=== PATIENT | female | born 1935 | race Caucasian/White ===

== ENCOUNTER 2020-08-07 21:51 | Inpatient (IN) | payer MEDICARE, OTHER ==
[~2020-08-07] VITALS: Ht 157.5 cm; Wt 65.8 kg
[2020-08-07] MEDS ORDERED: IV NS 0.9% 1,000 ML BAG IV ONE (22:30)
--- NOTE | 2020-08-07 22:33 | NUR ---
PATIENT TO ER BED [address] [facility] FROM [facility]. PT IS AAOX3. SOMNOLENT. PATIENT IS BREATHING EVENLY AND UNLABORED ON 2L N/C AT 100%. PATIENT IS CONNECTED TO COMMERCIAL PEST CONTROL REPRESENTATIVE. Addendum: 08/08/20 at 0607 by NICOLE PT C/O ALTERED MENTAL STATUS.
[2020-08-07 22:40] LABS: BASOPHILS # (AUTO) 0.1 /CMM (0.0-0.2); BASOPHILS % (AUTO) 0.8 % (0.0-2.0); EOSINOPHILS % (AUTO) 2.7 % (0.0-6.0); HEMATOCRIT 45 % (33-45); HEMOGLOBIN 14.3 g/dL (11.5-14.8); LYMPHOCYTES # (AUTO) 2.8 /CMM (0.8-4.8); LYMPHOCYTES % (AUTO) 19.4 % (20.0-44.0); MEAN CORPUSCULAR HGB CONC 32 g/dl (31.0-36.0); MEAN CORPUSCULAR VOLUME 91 fL (82-100); MONOCYTES # (AUTO) 0.8 /CMM (0.1-1.30); MONOCYTES % (AUTO) 5.7 % (2.0-12.0); NEUTROPHILS # (AUTO) 10.3 /CMM (1.8-8.9); NEUTROPHILS % (AUTO) 71.4 % (43.0-81.0); PLATELET COUNT (AUTO) 248 /CMM (150-450); RED BLOOD CELL COUNT(AUTO) 4.97 MIL/uL (4.0-5.2); WHITE BLOOD COUNT (AUTO) 14.4 K/uL (4.3-11.0)
--- NOTE | 2020-08-07 22:44 | NUR ---
PT TAKEN TO CT. SCAN.
--- NOTE | 2020-08-07 22:44 | NUR ---
URINE COLLECTED AND SENT TO THE LAB.
[2020-08-07 22:55] LABS: ALBUMIN 2.7 g/dL (3.4-5.0); BILIRUBIN,DIRECT 0.2 mg/dL (0.0-0.2); BILIRUBIN,TOTAL 0.4 mg/dL (0.2-1.0); CALCIUM, SERUM 9.1 mg/dL (8.5-10.1); CREATININE 1.1 mg/dL (0.6-1.3); POTASSIUM 5.2 mmol/L (3.5-5.1); TOTAL PROTEIN, SERUM 6.5 g/dL (6.4-8.2)
[2020-08-07] MEDS ORDERED: DEXTROSE 50%-WATER 50 ML DISP.SYRIN IVP ONE (23:00)
[2020-08-07 23:04] LABS: ACETAMINOPHEN 1 ug/ml (10-30); ALCOHOL, BLOOD < 3 mg/dL (0-0)
[2020-08-07] MEDS ORDERED: DEXTROSE 50%-WATER 50 ML DISP.SYRIN ONE (23:07)
[2020-08-07 23:58] LABS: BILIRUBIN,URINE NEGATIVE (NEGATIVE); COLOR,URINE YELLOW (YELLOW); LEUKOCYTE ESTERASE ,URINE NEGATIVE (NEGATIVE); NITRITE, URINE NEGATIVE (NEGATIVE); PH,URINE 6.5 (5.0-8.0); PROTEIN,URINE NEGATIVE (NEGATIVE); UGLUCOSE NEGATIVE (NEGATIVE); UROBILINOGEN,URINE 0.2 EU/dL (0.2)
[2020-08-08] MEDS ORDERED: AZITHROMYCIN 500 MG in IV D5W 250 ML IV ONE ×2
[2020-08-08] MEDS ORDERED: CEFEPIME 1 GM in IV D5W 50 ML IV ONE ×2
[2020-08-08] MEDS ORDERED: methylPREDNISolone SOD SUCC 125 MG/2ML VIAL IV ONE
[2020-08-08] MEDS ORDERED: CEFEPIME 1 GM VIAL ONE (00:06)
[2020-08-08] MEDS ORDERED: methylPREDNISolone SOD SUCC 125 MG/2ML VIAL ONE (00:06)
[2020-08-08] MEDS ORDERED: IV NS 0.9% 1,000 ML BAG IV ONE (00:30)
--- NOTE | 2020-08-08 00:33 | NUR ---
[facility]ED [facility] PER [facility] KWAN REQUEST
[2020-08-08] MEDS ORDERED: AZITHROMYCIN 500 MG VIAL ONE (00:38)
[2020-08-08] MEDS ORDERED: ACETAMINOPHEN 325 MG TABLET PO PRN (05:00)
[2020-08-08] MEDS ORDERED: ONDANSETRON HCL/PF 4 MG/2 ML VIAL IVP PRN (05:00)
--- NOTE | 2020-08-08 05:23 | NUR ---
LAB CALLED REGARDING NEGATIVE COVID RESULT.
--- NOTE | 2020-08-08 05:40 | NUR ---
PATIENT IS GIVEN A BED BATH. PATIENT'S GOWN IS CHANGED. BEDSHEET IS CHANGED. PATIENT IS PROVIDED WITH CLEAN BLANKET. PATIENT'S CALL LIGHT IS WITHIN REACH. PATIENT IS MORE AWAKE, NOT SOMNOLENT. BREATHING EVENLY AND UNLABORED ON 2L NASAL CANNULA AT 100%. CONNECTED TO CARDIAC MONTIOR.
--- NOTE | 2020-08-08 05:57 | NUR ---
TELE 209-2
--- NOTE | 2020-08-08 06:05 | NUR ---
PATIENT IS MORE AWAKE. PATIENT IS AAOX3. PATIENT IS ABLE TO FOLLOW COMMANDS AND ANSWER EVERY QUESTIONS.
--- NOTE | 2020-08-08 06:21 | NUR ---
REPORT GIVEN TO NIECY JAMA FOR BRENNAN.
--- NOTE | 2020-08-08 06:22 | NUR ---
ACCEPTING NURSE WILL CALL BACK WHEN BED IS READY.
[2020-08-08] MEDS ORDERED: ARIP5TAB59 PO (08:04)
[2020-08-08] MEDS ORDERED: LEVO88TA5 PO (08:04)
[2020-08-08] MEDS ORDERED: ATEN25TA PO (08:04)
[2020-08-08] MEDS ORDERED: CLON0.1T PO (08:04)
[2020-08-08] MEDS: PANTOPRAZOLE 40 MG TABLET.DR PO SCH (08:25)
[2020-08-08 08:30] LABS: CALCIUM, SERUM 7.7 mg/dL (8.5-10.1); CREATININE 0.9 mg/dL (0.6-1.3); POTASSIUM 5.4 mmol/L (3.5-5.1)
[2020-08-08 08:46] LABS: ALBUMIN 2.4 g/dL (3.4-5.0); BILIRUBIN,TOTAL 0.3 mg/dL (0.2-1.0); MAGNESIUM 2.4 mg/dL (1.8-2.4); PHOSPHORUS 3.8 mg/dL (2.5-4.9); TOTAL PROTEIN, SERUM 5.9 g/dL (6.4-8.2)
[2020-08-08 08:58] LABS: THYROID STIMULATING HORMONE 39.488 uIU/mL (0.358-3.74)
[2020-08-08] MEDS: DOCUSATE SODIUM 100 MG CAPSULE PO SCH ×2 (09:00→16:13)
--- NOTE | 2020-08-08 09:30 | NUR ---
TELE/RN NOTES RELIEVED PATIENT FROM OR NURSE. PATIENT IS ON 2 L OXYGEN VIA NASAL CANNULA TOLERATING WELL. PATIENT IN NO APPARENT RESPIRATORY DISTRESS NOTED. NO COMPLAINED OF PAIN. INITIAL ASSESSMENT WAS DONE. WILL CONTINUE TO MONITOR.
[2020-08-08 09:50] LABS: EOSINOPHILS % (AUTO) 0.1 % (0.0-6.0); HEMATOCRIT 44 % (33-45); HEMOGLOBIN 13.9 g/dL (11.5-14.8); LYMPHOCYTES % (AUTO) 7.3 % (20.0-44.0); MEAN CORPUSCULAR HGB CONC 32 g/dl (31.0-36.0); MEAN CORPUSCULAR VOLUME 90 fL (82-100); MONOCYTES # (AUTO) 0.2 /CMM (0.1-1.30); MONOCYTES % (AUTO) 1.5 % (2.0-12.0); NEUTROPHILS # (AUTO) 12.5 /CMM (1.8-8.9); NEUTROPHILS % (AUTO) 91.1 % (43.0-81.0); PLATELET COUNT (AUTO) 162 /CMM (150-450); RED BLOOD CELL COUNT(AUTO) 4.91 MIL/uL (4.0-5.2); WHITE BLOOD COUNT (AUTO) 13.7 K/uL (4.3-11.0)
[2020-08-08] MEDS: VANCOMYCIN 1 GM in IV D5W 250 ML IV SCH (10:18)
[2020-08-08] MEDS: IV D5/ 0.9% NACL 1,000 ML IV PRN (10:18)
[2020-08-08] MEDS: PIPERACILLIN /TAZOBACTAM 3.375 G in IV D5W 50 ML IV SCH ×3 (13:18→23:35)
--- NOTE | 2020-08-08 15:00 | NUR ---
TELE/RN NOTES GIVE REPORT TO LATA FOR BRENNAN. PATIENT IN NO APPARENT RESPIRATORY DISTRESS NOTED. NO COMPLAINED OF PAIN. TRANSFER PATIENT PER HOSPITAL PROTOCOL.
--- NOTE | 2020-08-08 15:00 | NUR ---
MINERVA/RN NOTES GIVE REPORT TO LATA AMIN. Addendum: 08/08/20 at 1618 by REUBEN ROA RN ERROR
--- NOTE | 2020-08-08 15:30 | NUR ---
Received patient in bed, A/)x3, on NC at 2L of O2, SPO2 is 94%, tolerating well, no s/sx of resp arrest or SOB noted, Will cont to monitor
[2020-08-08] MEDS: ARIPIPRAZOLE 5 MG TABLET PO SCH (16:13)
--- NOTE | 2020-08-08 18:32 | NUR ---
RN CLOSING NOTES PATIENT IN BED, A/OX3, TOLERATING O2 WELL, SPO2 IS 98%, NO S/SX OF DISTRESS NOTED, NPO STATUS UNTIL SWALLOW EVAL, SAFETY MEASURES IN PLACE, CALL LIGHT IN REACH, HOB ELEVATED, WILL ENDORSE TO PM SHIFT RN FOR BRENNAN
--- NOTE | 2020-08-08 19:30 | NUR ---
RN OPENING NOTES: RECEIVED PT A/OX 2-3 IN BED RESTING COMFORTABLY. PATIENT IN NO S/SX OF ACUTE DISTRESS AT THIS TIME. NO SOB NOTED. PATIENT'S BREATHING IS EVEN AND UNLABORED. PATIENT IS ON 2L OF OXYGEN VIA NC; TOLERATING WELL. PATIENT ON TELE MONITORING READING SINUS RHYTHM HR IS @70's AT THE TIME OF RECEIVED. PT ON NPO AT THIS TIME. G TUBE FLUSHING AND PATENT; SITE CLEAN DRY AND INTACT; NO RESIDUAL NOTED; CLAMPED. NOTED IV SITE ON R HAND #22 AND L HAND #22; PATENT, INTACT AND FLUSHING WELL; NO S/S OF INFECTION OR INFILTRATION. WITH IV FLUID RUNNING ORDERED. SAFETY MEASURES HAVE BEEN PROVIDED AND IMPLEMENTED. PATIENT BED ALARM IS ON. HEAD OF BED ELEVATED. BED IS LOCKED, IN LOWEST POSITION AND SIDE RAILS UP. CALL LIGHT WITHIN REACH OF THE PATIENT. APPLICABLE ISOLATION PRECAUTIONS IN PLACE. WILL CONTINUE TO MONITOR AND REASSESS FOR ANY CHANGES AND WILL CARRY OUT ANY ONGOING AND ACTIVE MD ORDER.
[2020-08-08] MEDS: MORPHINE SULFATE INJ 2 MG/ML DISP.SYRIN IV PRN (19:37)
[2020-08-08 20:00] VITALS: BP 105/52
--- NOTE | 2020-08-08 20:30 | NUR ---
RN NOTES PATIENT COMPLAINS OF PAIN ON HER L HAND. PRN MEDICATION GIVEN ( MORPHINE) ALSO PROVIDED PAIN MGT MEASURES TO REDUCE DISCOMFORT OF PATIENT. MEDICAL BILLER CODER MADE AWARE. PATIENT ALSO ASKING FOR HER PHONE. RN CHECKED CHART TO VERIFY IF PT HAS PHONE DURING ADMISSION. PER BELONGINGS FORM DONE DURING ADMISSION NO BELONGINGS LISTED. CALLED PT'S SISTER (BENNY) AND ADVISE ABOUT PT'S PHONE CONCERN AND ADVISE HER THAT NO PHONE WAS BROUGHT DURING ADMISSION. SHE SAID IT MIGHT BE STILL WITH [facility] WHERE PATIENT CAME FROM. SHE WILL TRY TO CONTACT THEM AND WILL BRING TO [facility] ONCE OBTAINED TO BE GIVEN TO THE PATIENT. ALSO PROVIDED SOME GENERAL UPDATES ABOUT PATIENT. RN FACILITATED CALL FOR PATIENT AND PATIENT RELATIVE ( BENNY). BENNY WAS VERY THANKFUL FOR THE SERVICE BEING RENDERED TO THE PATIENT. RN ACKNOWLEDGED. MEDICAL BILLER CODER MADE AWARE.
--- NOTE | 2020-08-08 21:00 | NUR ---
RN NOTES PATIENT STILL COMPLAINS OF PAIN ON HER L HAND, PATIENT IS A LITTLE RESTLESS AND KEEPS ON SCREAMING. PAIN MGT MEASURE STILL BEING RENDERED. WILL COMMUNICATE WITH ELAINE VELÁSQUEZ ABOUT THIS CONCERN. COMMUNICATED WITH ELAINE VELÁSQUEZ AND ADVISE ISSUE. SECURED ORDER FOR PATIENT. ONCISABELLA VELÁSQUEZ ( DR. SERNA) ORDERED ATIVAN 0.5MG IV Q6H PRN. WILL ADMINISTER PER ORDERED. SUPPORT ANALYST MADE AWARE. WILL CONTINUE TO MONITOR AND ASSESS THROUGHOUT THE SHIFT.
[2020-08-08] MEDS ORDERED: LORAZEPAM INJ 2 MG/ML VIAL IV PRN (22:30)
--- NOTE | 2020-08-08 23:00 | NUR ---
RN NOTES PATIENT REMAINS IN NO ACUTE RESPIRATORY DISTRESS AT THIS TIME, STABLE AT THIS TIME;NO CHANGES TO CONDITION/STATUS. PATIENT STILL HAVE SOME EPISODES OF DISCOMFORT AND PAIN FROM L HAND. RN CONTINUOUSLY PROVIDING NURSING PAIN MGT MEASURES TO RELIEVE DISCOMFORT EXPERIENCE. DISABILITY PROGRAM NAVIGATOR WELL AWARE. WILL CONTINUE TO MONITOR AND REASSESS FOR ANY CHANGES THROUGHOUT THE SHIFT
[2020-08-09] VITALS (8 sets, daily range): BP systolic 84–142; BP diastolic 39–82
--- NOTE | 2020-08-09 04:05 | NUR ---
RN NOTES NOTED PATIENT'S BLOOD PRESSURE IS @ 84/40. PT HAS HISTORY OF HYPOTENSION. PREVIOUS BP PLAYS AROUND LOW 100s AND 90s for SYSTOLIC. DEEP JAMA MADE AWARE. WILL INFORM ELAINE VELÁSQUEZ FOR HEADS UP AND TO SECURE FOR ANY NECESSARY ORDERS NEEDED. WILL CONTINUE TO MONITOR AND ASSESS CLOSELY THE PATIENT THROUGHTOUT THE SHIFT. COMMUNICATED WITH ELAINE VELÁSQUEZ (DR SERNA) AND ADVISED CURRENT CONDITION AND CONCERN REGARDING PATIENT ( LOW BLOOD PRESSURE ( 84/40) @0400. AWAITING RESPONSE FROM ELAINE VELÁSQUEZ. DEEP JAMA MADE AWARE. Addendum: 08/09/20 at 0523 by NIECY GRAVES RN RECEIVED ORDER FROM DR. SERNA (ELAINE) BOLUS OF NS 500ML. DEEP JAMA MADE AWARE. WILL CARRY OUT ORDER. WILL CONTINUE TO MONITOR AND ASSESS CLOSELY THE PATIENT THROUGHOUT THE SHIFT.
[2020-08-09] MEDS ORDERED: IV NS 0.9% 500 ML IV ONE (05:00)
--- NOTE | 2020-08-09 05:05 | NUR ---
RN NOTES RECEIVED CALL FROM LAB ([facility]) INFORMED ABOUT CRITICAL LAB ; BLOOD CULTURE: GRAM + COCCI IN CLUSTERS. COMMUNICATED WITH ELAINE VELÁSQUEZ REGARDING CRITICAL LAB RESULT: BLOOD CULTURE: GRAM + COCCI IN CLUSTERS. DEEP JAMA MADE AWARE. Addendum: 08/09/20 at 0533 by NIECY GRAVES RN PER DR. SERNA, CONTINUE CURRENT ANTIBIOTICS; RN ACKNOWLEDGED. DEEP JAMA MADE AWARE.
[2020-08-09] MEDS: PIPERACILLIN /TAZOBACTAM 3.375 G in IV D5W 50 ML IV SCH ×2 (05:21→12:18)
[2020-08-09] MEDS: IV D5/ 0.9% NACL 1,000 ML IV PRN (06:34)
--- NOTE | 2020-08-09 06:52 | NUR ---
RN CLOSING NOTE: PATIENT REMAINS IN ROOM IN NO SIGNS OF RESPIRATORY DISTRESS. SAFETY MEASURES IMPLEMENTED, BED IN LOWEST POSITION, LOCKED, SIDE RAILS UP, CALL LIGHT WITHIN REACH. ALL NEEDS AND ORDERS ADDRESSED DURING THE SHIFT. IV ACCESS MAINTAINED INTACT, SECURED AND FLUSHING WELL. ALL DUE MEDS GIVEN ORDERED & SCHEDULED ; PATIENT TOLERATED WELL. PATIENT KEPT CLEAN AND COMFORTABLE WITHIN THE SHIFT. ENDORSED TO INCOMING SHIFT RN FOR CONTINUITY OF CARE.
[2020-08-09] MEDS ORDERED: LEVOTHYROXINE SODIUM 88 MCG TABLET PO SCH (07:00)
[2020-08-09 07:26] LABS: ALBUMIN 2.1 g/dL (3.4-5.0); BILIRUBIN,DIRECT 0.3 mg/dL (0.0-0.2); BILIRUBIN,TOTAL 0.4 mg/dL (0.2-1.0); POTASSIUM 4.1 mmol/L (3.5-5.1); TOTAL PROTEIN, SERUM 5.1 g/dL (6.4-8.2)
[2020-08-09] MEDS: PANTOPRAZOLE 40 MG TABLET.DR PO SCH (07:30)
--- NOTE | 2020-08-09 07:30 | NUR ---
RN OPENING NOTES: RECEIVED PT A/OX 2-3 IN BED RESTING COMFORTABLY. PATIENT IN NO S/SX OF ACUTE DISTRESS AT THIS TIME. NO SOB NOTED. PATIENT'S BREATHING IS EVEN AND UNLABORED. PATIENT IS ON 2L OF OXYGEN VIA NC; TOLERATING WELL. PATIENT ON TELE MONITORING READING SINUS RHYTHM HR IS @70's AT THE TIME OF RECEIVED. PT ON NPO AT THIS TIME. G TUBE FLUSHING AND PATENT; SITE CLEAN DRY AND INTACT; NO RESIDUAL NOTED; CLAMPED. NOTED IV SITE ON R HAND #22 AND L HAND #22; PATENT, INTACT AND FLUSHING WELL; NO S/S OF INFECTION OR INFILTRATION. WITH IV FLUID RUNNING ORDERED. SAFETY MEASURES HAVE BEEN PROVIDED AND IMPLEMENTED. PATIENT BED ALARM IS ON. HEAD OF BED ELEVATED. BED IS LOCKED, IN LOWEST POSITION AND SIDE RAILS UP. CALL LIGHT WITHIN REACH OF THE PATIENT. APPLICABLE ISOLATION PRECAUTIONS IN PLACE. WILL CONTINUE TO MONITOR AND PROVIDE TREATMENT
[2020-08-09] MEDS: VANCOMYCIN 1 GM in IV D5W 250 ML IV SCH (08:17)
[2020-08-09] MEDS: DOCUSATE SODIUM 100 MG CAPSULE PO SCH (08:55)
[2020-08-09] MEDS: ARIPIPRAZOLE 5 MG TABLET PO SCH (08:55)
--- NOTE | 2020-08-09 09:17 | NUR ---
INFORMED MD OF HYPOTENSION. NEW ORDER OBTAINED TO INCREASE IV FLUIDS TO 100ML/HR. ORDER IMPLEMENTED. WILL CONTINUE TO MONITOR PATIENT
--- NOTE | 2020-08-09 10:17 | NUR ---
REASSESSED BLOOD PRESSURE. INCREASED TO 97/59 WITH INCREASED FLUID RATE. WILL CONT TO MONITOR FOR HYPOTENSION.
--- NOTE | 2020-08-09 10:51 | NUR ---
IV SITE ON R ARM REMOVED DUE TO REDNESS AND INFILTRATION. ARM ELEVATED. WILL CONT TO MONITOR
[2020-08-09] MEDS ORDERED: PHARMACY TO CHANGE PO MEDS TO GT/NG XX PRN (11:00)
[2020-08-09] MEDS ORDERED: ACETAMINOPHEN 650 MG/20.3 ML UDC NG PRN (11:30)
[2020-08-09] MEDS ORDERED: DIATR MEGLU/DIATRIZOATE SODIUM 30 ML BOTTLE (GASTROGRAPHIN) ONE (13:48)
--- NOTE | 2020-08-09 15:20 | NUR ---
IV ON LEFT ARM INFILTRATED, REMOVED. MIDLINE SITE ON RIGHT UPPER ARM NOT FLUSHING WELL. ALL IVs ON HOLD PENDING IV INSERTION.
[2020-08-09] MEDS: ARIPIPRAZOLE 5 MG TABLET NG SCH (16:05)
[2020-08-09] MEDS: DOCUSATE SODIUM LIQ 100 MG/10 ML UDC NG SCH (16:05)
[2020-08-09] MEDS: MORPHINE SULFATE INJ 2 MG/ML DISP.SYRIN IV PRN (16:10)
--- NOTE | 2020-08-09 22:30 | NUR ---
REPORT GIVEN TO CHERRY VERA. PATIENT TRANSFERRED TO [facility] BED 2.
[2020-08-10] VITALS (9 sets, daily range): BP systolic 127–165; BP diastolic 73–91
[2020-08-10] MEDS: LEVOTHYROXINE SODIUM 100 MCG TABLET NG SCH (06:03)
[2020-08-10] MEDS: PIPERACILLIN /TAZOBACTAM 3.375 G in IV D5W 50 ML IV SCH ×5 (06:16→18:13)
[2020-08-10] MEDS ORDERED: LEVOTHYROXINE SODIUM 100 MCG TABLET PO SCH (07:00)
[2020-08-10 07:25] LABS: CALCIUM, SERUM 7.6 mg/dL (8.5-10.1); CREATININE 0.8 mg/dL (0.6-1.3); POTASSIUM 3.9 mmol/L (3.5-5.1)
--- NOTE | 2020-08-10 07:30 | NUR ---
RN OPENING NOTE RECEIVED PATIENT RESTING IN BED. AWAKE, ALERT AND ORIENTED X 2-3. NO S/S PAIN NOTED. CONTINUES ON 2L O2 VIA NC WITH NO S/S RESPIRATORY DISTRESS NOTED. JEVITY 1.2 RUNNING AT 30ML/HR WITH PATIENT TOLERATING FEED WELL. IV ACCESS TO RIGHT UPPER ARM WITH FLUIDS RUNNING. IV SITE INTACT AND PATENT. CALL LIGHT WITHIN REACH. ASPIRATION, SAFETY AND FALL PRECAUTIONS MAINTAINED. WILL CONTINUE TO MONITOR.
[2020-08-10] MEDS: ARIPIPRAZOLE 5 MG TABLET NG SCH ×2 (08:01→16:20)
[2020-08-10] MEDS: DOCUSATE SODIUM LIQ 100 MG/10 ML UDC NG SCH ×2 (08:01→16:20)
[2020-08-10] MEDS: PANTOPRAZOLE 40 MG/PACK PACK NG SCH (08:01)
[2020-08-10] MEDS: VANCOMYCIN 1 GM in IV D5W 250 ML IV SCH (08:19)
[2020-08-10] MEDS ORDERED: Z GUARD REMEDY 2 OZ OINT TP PRN (09:30)
--- NOTE | 2020-08-10 09:34 | NUR ---
WOUND CARE CONSULT: PT PRESENTS WITH RAISED RED RASH TO LEFT AXILLA, UNKNOWN ETIOLOGY, WELL RASH TO BUTTOCKS, PERINEUM AND GROIN FOLDS, ALL PRESENT ON ADMISSION. RECOMMENDATIONS MADE FOR SKIN CARE AND PROTECTION. DISCUSSED WITH NURSING STAFF. DEFER TO MD FOR LEFT AXILLA. RN TO DISCUSS WITH MD TODAY. WILL SEE PRN. MD IN AGREEMENT WITH PLAN OF CARE. Addendum: 08/10/20 at 0938 by RICKY CALIXTO WNDNU Amended: Links added.
[2020-08-10] MEDS: Z GUARD REMEDY 2 OZ OINT TP SCH (10:45)
[2020-08-10] MEDS ORDERED: LEVO500T90 PO (11:07)
[2020-08-10 11:25] LABS: BASOPHILS % (AUTO) 0.2 % (0.0-2.0); HEMATOCRIT 39 % (33-45); HEMOGLOBIN 12.8 g/dL (11.5-14.8); LYMPHOCYTES % (AUTO) 10.3 % (20.0-44.0); MEAN CORPUSCULAR HGB CONC 33 g/dl (31.0-36.0); MEAN CORPUSCULAR VOLUME 90 fL (82-100); MONOCYTES # (AUTO) 0.5 /CMM (0.1-1.30); MONOCYTES % (AUTO) 5.3 % (2.0-12.0); NEUTROPHILS # (AUTO) 8.5 /CMM (1.8-8.9); NEUTROPHILS % (AUTO) 83.2 % (43.0-81.0); PLATELET COUNT (AUTO) 207 /CMM (150-450); RED BLOOD CELL COUNT(AUTO) 4.35 MIL/uL (4.0-5.2); WHITE BLOOD COUNT (AUTO) 10.2 K/uL (4.3-11.0)
[2020-08-10] MEDS: CLOTRIMAZOLE 1% 15 GM TUBE TP SCH (16:21)
[2020-08-10] MEDS: IV D5/ 0.9% NACL 1,000 ML IV PRN (18:12)
--- NOTE | 2020-08-10 18:57 | NUR ---
RN MS NOTES PT IN BED, AWAKE, ALERT AND VERBALLY RESPONSIVE, NO COMPLAINT OF PAIN, NOT IN DISTRESS, CALL LIGHT WITHIN REACH, IV FLUIDS INFUSING WELL, PM MEDS GIVEN, TOLERATING GT FEEDING WELL, KEPT WARM AND COMFORTABLE IN BED.
--- NOTE | 2020-08-10 19:35 | NUR ---
POLYSOMNOGRAPHER OPENING NOTES PATIENT IN BED A/OX3 WITH CONFUSION. ON O2 2L VIA NC AND TOLERATING WELL. EDEMA TO L HAND NOTED. GTUBE PEG IN PLACE; PATENT, INTACT, AND FLUSHES WELL; INFUSING JEVITY 1.2 @ ML/HR. MIDLINE TO FRANC #18; PATENT AND INTACT; INFUSING D5NS @ 100ML/HR. PATIENT DENIES PAIN OR DISCOMFORT. WILL CONTINUE TO MONITOR.
[2020-08-11] MEDS: PIPERACILLIN /TAZOBACTAM 3.375 G in IV D5W 50 ML IV SCH ×4 (00:39→17:30)
[2020-08-11] MEDS: JEVITY 1.2 CAL 1,000 ML BOTTLE GT PRN (04:04)
[2020-08-11] MEDS: IV D5/ 0.9% NACL 1,000 ML IV PRN (06:12)
[2020-08-11] MEDS: PANTOPRAZOLE 40 MG/PACK PACK NG SCH (06:45)
[2020-08-11] MEDS: LEVOTHYROXINE SODIUM 100 MCG TABLET NG SCH (06:45)
[2020-08-11 07:23] LABS: CALCIUM, SERUM 7.2 mg/dL (8.5-10.1); CREATININE 0.7 mg/dL (0.6-1.3); POTASSIUM 3.5 mmol/L (3.5-5.1)
--- NOTE | 2020-08-11 07:40 | NUR ---
MS RN CLOSING NOTES PATIENT IN BED A/OX3 WITH CONFUSION. ON O2 2L VIA NC AND TOLERATING WELL. EDEMA TO L HAND NOTED. GTUBE PEG IN PLACE; PATENT, INTACT, AND FLUSHES WELL; INFUSING JEVITY 1.2 @ 55 ML/HR. MIDLINE TO FRANC #18; PATENT AND INTACT; INFUSING D5NS @ 100ML/HR. ENDORSED PLAN OF CARE TO ONCOMING MORNING NURSE.
[2020-08-11 08:18] VITALS: BP 143/76
[2020-08-11] MEDS: DOCUSATE SODIUM LIQ 100 MG/10 ML UDC NG SCH (08:27)
[2020-08-11] MEDS: ARIPIPRAZOLE 5 MG TABLET NG SCH (08:28)
[2020-08-11] MEDS: CLOTRIMAZOLE 1% 15 GM TUBE TP SCH ×2 (08:30→16:10)
--- NOTE | 2020-08-11 08:30 | NUR ---
m/s check writer salesperson: md visit seen and examined by dr. gan. pt on the phone with arely ([id number]) and aware that pt is going back to [facility] today. all questions and concerns by pt and family answered by md. will continue to monitor.
[2020-08-11] MEDS: VANCOMYCIN 1 GM in IV D5W 250 ML IV SCH (09:00)
[2020-08-11] MEDS: Z GUARD REMEDY 2 OZ OINT TP SCH (09:14)
--- NOTE | 2020-08-11 14:00 | NUR ---
m/s python web developer: notes pt sounds asleep. no distress. hob elevated. will continue to monitor.
[2020-08-11] MEDS: DOCUSATE SODIUM LIQ 100 MG/10 ML UDC GT SCH (16:06)
[2020-08-11] MEDS: ACETAMINOPHEN 650 MG/20.3 ML UDC GT PRN (16:06)
[2020-08-11] MEDS: ARIPIPRAZOLE 5 MG TABLET GT SCH (16:06)
[2020-08-11 16:12] VITALS: BP 147/80
--- NOTE | 2020-08-11 17:30 | NUR ---
m/s legislators: notes pt resting comfortable. no distress noted. for d'c planning back to [facility], awaiting for kait from [facility].
--- NOTE | 2020-08-11 19:00 | NUR ---
m/s medical historian: notes report given to juan (xiomy) for continuity of care.
--- NOTE | 2020-08-11 19:40 | NUR ---
MS RN NOTE: PATIENT RESTING IN BED, NO ACUTE DISTRESS NOTED. BREATHING EVEN AND UNLABORED, NO SOB NOTED. MIDLINE TO FRANC IN PLACE, INFUSING D5NS AT 100ML/HR. GTUBE IN PLACE, INFUSING JEVITY 1.2 AT 55ML/HR, WITH NO RESIDUAL. HOB ELEVATED. BED LOCKED AND IN LOWEST POSITION, CALL LIGHT IN REACH. WILL CONTINUE TO MONITOR THROUGHOUT SHIFT.
[2020-08-11 21:07] VITALS: BP 136/74
[2020-08-12] MEDS: PIPERACILLIN /TAZOBACTAM 3.375 G in IV D5W 50 ML IV SCH ×3 (00:18→12:42)
[2020-08-12] MEDS: JEVITY 1.2 CAL 1,000 ML BOTTLE GT PRN (00:18)
[2020-08-12] MEDS: IV D5/ 0.9% NACL 1,000 ML IV PRN (03:11)
[2020-08-12] MEDS: ACETAMINOPHEN 650 MG/20.3 ML UDC GT PRN (03:15)
[2020-08-12] MEDS: MORPHINE SULFATE INJ 2 MG/ML DISP.SYRIN IV PRN ×2 (04:32→11:42)
--- NOTE | 2020-08-12 04:45 | NUR ---
MS RN NOTE: PATIENT COMPLAINS OF PAIN TO LEFT HAND 04/02, MORPHINE 2MG IV GIVEN PER MD ORDER. WILL CONTINUE TO MONITOR THROUGHOUT SHIFT.
--- NOTE | 2020-08-12 06:20 | NUR ---
MS RN NOTE: PATIENT RESTING IN BED, NO ACUTE DISTRESS NOTED. BREATHING EVEN AND UNLABORED, NO SOB NOTED. MIDLINE TO FRANC IN PLACE, INFUSING D5NS AT 100ML/HR. GTUBE IN PLACE, INFUSING JEVITY 1.2 AT 55ML/HR, WITH NO RESIDUAL. HOB ELEVATED. BED LOCKED AND IN LOWEST POSITION, CALL LIGHT IN REACH. WILL ENDORSE TO DAY NURSE TO CONTINUE WITH PLAN OF CARE.
[2020-08-12] MEDS ORDERED: LEVOTHYROXINE SODIUM 100 MCG TABLET GT SCH (07:00)
[2020-08-12 07:22] LABS: CALCIUM, SERUM 7.6 mg/dL (8.5-10.1); POTASSIUM 3.8 mmol/L (3.5-5.1)
[2020-08-12] MEDS ORDERED: PANTOPRAZOLE 40 MG/PACK PACK GT SCH (07:30)
--- NOTE | 2020-08-12 07:40 | NUR ---
MS RN OPENING NOTE PATIENT IS IN BED RESTING. PATIENT IS IN NO ACUTE DISTRESS. PATIENT IS ON NC ON 2L OXYGEN. NO SOB NOTED. SAFETY PRECAUTIONS ARE IN PLACE. BED IS LOCKED AND IN THE LOWEST POSITION. SIDE RAILS ARE UP, CALL LIGHT WITHIN REACH. WILL CONTINUE TO MONITOR CLOSELY THROUGH OUT THE SHIFT.
[2020-08-12 08:00] VITALS: BP 115/67
[2020-08-12] MEDS: ARIPIPRAZOLE 5 MG TABLET GT SCH ×2 (08:05→16:29)
[2020-08-12] MEDS: DOCUSATE SODIUM LIQ 100 MG/10 ML UDC GT SCH ×2 (08:06→16:29)
[2020-08-12] MEDS: VANCOMYCIN 1 GM in IV D5W 250 ML IV SCH (08:06)
[2020-08-12] MEDS: CLOTRIMAZOLE 1% 15 GM TUBE TP SCH ×2 (08:10→16:30)
[2020-08-12] MEDS: Z GUARD REMEDY 2 OZ OINT TP SCH (08:10)
[2020-08-12 16:00] VITALS: BP 128/72
[2020-08-12] MEDS ORDERED: LEVOFLOXACIN 750 MG /D5W 150ML 750 MG in PREMIX 1 EA IV SCH (18:00)
--- NOTE | 2020-08-12 19:10 | NUR ---
MS RN NOTE PATIENT HAS BONE MARROW BIOPSY AND ASPIRATION DONE BY DR. LOPEZ. PATIENT TOLERATED PROCEDURE WELL. Addendum: 08/12/20 at 2034 by STELLA BANDA RN CHARTED FOR WRONG PATIENT
--- NOTE | 2020-08-12 19:30 | NUR ---
RN opening notes Received Pt from morning nurse. Pt is laying in bed watching TV comfortably. Pt is alert and orientedX2 and easily forgetful. Respiration is normal in 2 L NC. No SOB. No S/S of distress noted. FRANC midline # 18 is clean, intact and infusing well D5 NS @ 100 ml/hr. Gtube feeding is intact and infusing well jevity 1.2 @ 55ml/hr with 0 residual. Pt is going to D/C tonight to [facility]. Safety precautions is maintained. Bed at low position, brakes locked and side rails upX2 and call light is within reach. Will continue to monitor.
[2020-08-12 20:00] VITALS: BP 128/85
--- NOTE | 2020-08-12 20:39 | NUR ---
MS RN CLOSING NOTE PATIENT IS IN BED RESTING. PATIENT IN NO ACUTE DISTRESS. PATIENT IS ON OXYGEN 2L NC. NO SOB NOTED. SAFETY PRECAUTIONS ARE IN PLACE. BED IN THE LOWEST POSITION WITH BED ALARM ON. SIDE RAILS ARE UP, CALL LIGHT WITHIN REACH. PATIENT IS SCHEDULED FOR DISCHARGE. ENDORSE [facility]IENTS TO [facility] RN NURSE FOR BRENNAN.
[2020-08-12 21:50] VITALS: BP 142/82
--- NOTE | 2020-08-12 21:50 | NUR ---
solar sales manager notes [facility] came with 2 EMT ( Beto and Reji) to pickle solution maker Pt and transport Pt to [facility]. Pt is alert and orientedX2 and easily forgetful. Informed to Pt D/C paper work is given to EMT. Pt's verbalize understanding. Pt does not have any belongings. Pt's cell phone with Pt. VS is stable. Afebrile. No SOB. No S/S of distress noted. FRANC midline is removed. G-tube is intact, clean and dry. Armband is removed.
--- NOTE | 2020-08-12 23:10 | NUR ---
RN notes Received a phone call from [facility] Jovel. Explained and informed to Becka that information regarding Pt's meds is in the discharge summary. Becka said "I find it." and verbalize understanding.
== END 2020-08-12 22:00 | DRG 177 ==
LOC: ER 21:57 → TRANSITION 08-08 02:24 → UNDOADMIN 08-08 02:24 → TELE2 08-08 06:09 → TRANSITION 08-08 06:09 → TELE1 08-08 16:52 → TELE2 08-08 16:52 → TELE1 08-09 23:18 → TELE 08-09 23:18 → MED 08-10 12:42 → UNDODISIN 08-12 22:00
PROVIDERS: ADMIT Internal Medicine; ATTEND Internal Medicine
PROC: 05HB33Z Insertion of Infusion Device into Right Basilic Vein, Percutaneous Approach (ICD-10-PCS; principal; 2020-08-10)
DX: J15.6 Pneumonia due to other Gram-negative bacteria (principal); J96.01 Acute respiratory failure with hypoxia; N17.0 Acute kidney failure with tubular necrosis; E43 Unspecified severe protein-calorie malnutrition; G93.41 Metabolic encephalopathy; I69.354 Hemiplegia and hemiparesis following cerebral infarction affecting left non-dominant side; E87.2 Acidosis; Z79.899 Other long term (current) drug therapy; Z79.890 Hormone replacement therapy; Z86.16 Personal history of COVID-19; Z20.822 Contact with and (suspected) exposure to COVID-19; Y95 Nosocomial condition; R13.10 Dysphagia, unspecified; R74.01 Elevation of levels of liver transaminase levels; E78.5 Hyperlipidemia, unspecified; E87.5 Hyperkalemia; G89.29 Other chronic pain; I10 Essential (primary) hypertension
CPT/HCPCS: 36415; 70450-TC; 71045-TC; 74018; 80048-TC; 80053-TC; 80061-TC; 80076-TC; 80202-TC; 82962-TC; 83605-TC; 83690-TC; 83735-TC; 83880; 84100-TC; 84439-TC; 84443-TC; 84484-TC; 85025-TC; 85730-TC; 87040-TC; 87081-TC; 92526; 92611-TC; 93307-TC; A4216; G0378; G0480; J0456; J0692; J1956; J2060; J2270; J2543; J2930; J3370; J3490; J7030; J7040; J7042; J7050; J7060; Q9963; U0003